=== PATIENT | male | born 1990 ===

== ENCOUNTER 2022-12-13 21:40 | Emergency (ER) | payer MEDICAID ==
[2022-12-13] MEDS: Albuterol/Ipratropium 3.0-0.5 MG/3 ML Neb Soln NEB PRN (22:23)
[2022-12-13] MEDS ORDERED: Albuterol 8 GM Inhaler ONE (22:30)
== END 2022-12-13 22:40 | disposition home or self-care (01) ==
LOC: LB.ED 21:40
DX: J45.901 Unspecified asthma with (acute) exacerbation (principal); Z91.09 Other allergy status, other than to drugs and biological substances
CPT/HCPCS: 94640; 99282; 99284; A9270-GY; J7620